=== PATIENT | male | born 1960 | race Hispanic/Latino ===

== ENCOUNTER 2022-01-28 09:12 | Outpatient (CLI) | payer MEDICARE | END 2022-01-28 09:13 | disposition home or self-care (01) | LOC: NAV RAD 09:12 | PROVIDERS: ATTEND Neurological Surgery | DX: M48.062 Spinal stenosis, lumbar region with neurogenic claudication (principal); Z98.890 Other specified postprocedural states | CPT/HCPCS: 72100 ==

== ENCOUNTER 2022-07-01 09:37 | Outpatient (CLI) | payer MEDICARE | END 2022-07-01 09:38 | disposition home or self-care (01) | LOC: NAV RAD 09:37 | PROVIDERS: ATTEND Physician Assistant | DX: M54.50 Low back pain, unspecified (principal); M47.816 Spondylosis without myelopathy or radiculopathy, lumbar region; Z98.890 Other specified postprocedural states | CPT/HCPCS: 72100 ==